=== PATIENT | male | born 1935 | race Caucasian/White ===

== ENCOUNTER 2017-07-09 15:18 | Inpatient (IN) | payer OTHER ==
[~2017-07-09] VITALS: Ht 182.9 cm; Wt 100.6 kg
[~2017-07-09 15:18] MED LIST: AMIODARONE HCL200 MG PO; AMOXICILLIN500 M1 PO; BISOPROLOL-HCT1 EACH PO; CARDIZEM CD,CA240 MG PO; CARDIZEM60 MG PO; CENTRUM SILVER1 EAC3 PO; Cardizem PO; FERROCITE324 MG PO; LISINOPRIL10 MG PO; LOSARTAN POTASS50 MG PO; PRADAXA150 MG PO; PRINIVIL10 MG PO; PRINIVIL20 MG PO; Pradaxa PO; Pravachol PO; Zestril,Prinivil PO
[2017-07-09 18:30] VITALS: BP 118/59
[2017-07-09 19:14] VITALS: BP 130/78
[2017-07-09 23:30] VITALS: BP 133/74
[2017-07-10 03:40] VITALS: BP 120/73
[2017-07-10 08:05] VITALS: BP 120/58
[2017-07-10 16:22] VITALS: BP 123/68
[2017-07-10 23:18] VITALS: BP 124/86
[2017-07-11 08:23] VITALS: BP 139/89
[2017-07-11 15:30] VITALS: BP 132/89
[2017-07-11 23:25] VITALS: BP 158/93
[2017-07-12 03:46] VITALS: BP 152/83
[2017-07-12 05:27] LABS: HEMATOCRIT 24.3 % (38.0-50.0)
[2017-07-12 05:40] LABS: HEMOGLOBIN 7.6 G/DL (12.5-16.6)
[2017-07-12 06:07] LABS: CHLORIDE 100 MEQ/L (99-109); CREATININE 0.9 MG/DL (0.6-1.3); GFR ESTIMATE (CALCULATED) > 59 mL/min/ (58.99-99999); GLUCOSE 173 mg/dL (70-99); POTASSIUM 4.4 MEQ/L (3.7-5.4); SODIUM 134 MEQ/L (136-147); UREA NITROGEN (BUN) 15 mg/dL (9-23)
[2017-07-12 07:41] VITALS: BP 136/78; BP 36/78
[2017-07-12 10:57] VITALS: BP 141/85
[2017-07-12 16:37] VITALS: BP 150/82
[2017-07-12 20:22] VITALS: BP 175/79
[2017-07-12 23:43] VITALS: BP 188/93
[2017-07-13 01:47] VITALS: BP 168/75
[2017-07-13 04:10] VITALS: BP 165/90
[2017-07-13 06:06] LABS: HEMATOCRIT 25.3 % (38.0-50.0); HEMOGLOBIN 7.9 G/DL (12.5-16.6); MCH 25.5 PG (29.0-34.0); MCHC 31.2 G/DL (30.0-36.0); MCV 81.6 FL (86-99); RBC DIS.WIDTH-SD 44.1 % (39-53); WHITE BLOOD COUNT 12.1 K/uL (4.1-10.2)
[2017-07-13 06:41] LABS: CHLORIDE 101 MEQ/L (99-109); GFR ESTIMATE (CALCULATED) > 59 mL/min/ (58.99-99999); GLUCOSE 126 mg/dL (70-99); POTASSIUM 4.8 MEQ/L (3.7-5.4); SODIUM 135 MEQ/L (136-147); UREA NITROGEN (BUN) 17 mg/dL (9-23)
[2017-07-13 06:53] LABS: IMM.PLATELET FRACTION 14.1 (1-7); PLAT.SUFFICIENCY DECREASED; PLATELET COUNT 138 K/uL (156-360)
[2017-07-13 07:31] VITALS: BP 136/92
[2017-07-13 11:38] VITALS: BP 113/62
[2017-07-13 16:04] VITALS: BP 135/84
[2017-07-13 20:20] VITALS: BP 156/86
[2017-07-14] VITALS (7 sets, daily range): BP systolic 116–140; BP diastolic 69–91
[2017-07-14 07:32] LABS: HEMATOCRIT 25.6 % (38.0-50.0); HEMOGLOBIN 7.9 G/DL (12.5-16.6); MCV 81.3 FL (86-99)
[2017-07-14] MEDS ORDERED: [UNRECOGNIZED DRUG - CODE] IM (13:46)
[2017-07-14 16:46] LABS: CHLORIDE 103 MEQ/L (99-109); GFR ESTIMATE (CALCULATED) > 59 mL/min/ (58.99-99999); GLUCOSE 139 mg/dL (70-99); POTASSIUM 4.3 MEQ/L (3.7-5.4); SODIUM 136 MEQ/L (136-147); UREA NITROGEN (BUN) 16 mg/dL (9-23)
[2017-07-15 08:09] VITALS: BP 155/98
[2017-07-15 12:24] LABS: HEMATOCRIT 24.9 % (38.0-50.0); HEMOGLOBIN 7.6 G/DL (12.5-16.6); MCH 24.8 PG (29.0-34.0); MCHC 30.5 G/DL (30.0-36.0); MCV 81.1 FL (86-99); RBC DIS.WIDTH-CV 15.1 % (11.8-14.6); RBC DIS.WIDTH-SD 44.5 % (39-53); RED BLOOD COUNT 3.07 M/uL (4.00-5.50); WHITE BLOOD COUNT 12.1 K/uL (4.1-10.2)
[2017-07-15 12:41] VITALS: BP 150/81
[2017-07-15 12:47] LABS: CHLORIDE 102 MEQ/L (99-109); GFR ESTIMATE (CALCULATED) > 59 mL/min/ (58.99-99999); GLUCOSE 165 mg/dL (70-99); POTASSIUM 4.1 MEQ/L (3.7-5.4); SODIUM 135 MEQ/L (136-147); UREA NITROGEN (BUN) 13 mg/dL (9-23)
[2017-07-15 12:51] LABS: ANISOCYTOSIS 1+; BASOPHIL (%) 0.4 % (0-1); BASOPHIL COUNT 0.1 K/uL (0-0.1); EOSINOPHIL (%) 2.3 % (0-5); EOSINOPHIL COUNT 0.3 K/uL (0-0.3); HYPOCHROMASIA 1+; IMMATURE GRANULOCYTE (%) 0.5 % (0.0-0.7); LYMPHOCYTE (%) 8.5 % (15-42); MACROCYTES 1+; MICROCYTOSIS 1+; MONOCYTE (%) 6.1 % (3-12); MONOCYTE COUNT 0.7 K/uL (0-0.8); NEUTROPHIL (%) 82.2 % (45-76); NEUTROPHIL COUNT 9.9 K/uL (1.8-6.4); PLAT.SUFFICIENCY ADEQUATE; POIKILOCYTOSIS 1+; POLYCHROMASIA 3+
[2017-07-15 14:55] LABS: APPEARANCE CLEAR ((CLEAR)); BILIRUBIN NEGATIVE; BLOOD NEGATIVE; COLOR STRAW ((YELLOW)); GLUCOSE (STRIP) NEGATIVE; KETONES NEGATIVE; LEUKOCYTES NEGATIVE; NITRITE NEGATIVE; PROTEIN (STRIP) NEGATIVE; SPECIFIC GRAVITY 1.009 (1.000-1.030); UCUL ADDED? NO; UROBILINOGEN 0.2 MG/DL (0.2-1.0)
[2017-07-15 16:58] VITALS: BP 160/80
[2017-07-15 20:54] VITALS: BP 137/96
[2017-07-16 08:03] VITALS: BP 160/108
[2017-07-16 16:39] VITALS: BP 158/96
[2017-07-16 23:49] VITALS: BP 125/75
[2017-07-17] VITALS (7 sets, daily range): BP systolic 121–154; BP diastolic 68–82
[2017-07-17 06:26] LABS: HEMATOCRIT 25.2 % (38.0-50.0); HEMOGLOBIN 7.5 G/DL (12.5-16.6); MCH 24.3 PG (29.0-34.0); MCHC 29.8 G/DL (30.0-36.0); MCV 81.6 FL (86-99); PLATELET COUNT 99 K/uL (156-360); RBC DIS.WIDTH-CV 15.5 % (11.8-14.6); RBC DIS.WIDTH-SD 45.4 % (39-53); RED BLOOD COUNT 3.09 M/uL (4.00-5.50); WHITE BLOOD COUNT 10.1 K/uL (4.1-10.2)
[2017-07-17 11:46] LABS: FASTING STATUS NONFASTING
[2017-07-17 12:37] LABS: HDL CHOLESTEROL 31 MG/DL (Desirable>=40); LDL CHOLESTEROL 45 mg/dL (Desirable<100); NON-HDL CHOLESTEROL 59 mg/dL (Desirable<160); TOTAL CHOLESTEROL 90 mg/dL (Desirable<200); TRIGLYCERIDES 69 MG/DL (Normal: <150)
[2017-07-17 14:05] LABS: HEMOGLOBIN A1c (GLYCOHEMOGLOB) 6.2 % (Below 5.7)
[2017-07-17 17:25] LABS: HEMATOCRIT 28.1 % (38.0-50.0); HEMOGLOBIN 8.6 G/DL (12.5-16.6); MCV 82.2 FL (86-99)
[2017-07-18 07:31] VITALS: BP 162/84
[2017-07-18] MEDS ORDERED: PANTOPRAZOLE SO40 MG PO (14:41)
[2017-07-18] MEDS ORDERED: PRADAXA150 MG PO (14:41)
[2017-07-18] MEDS ORDERED: LOPRESSOR100 M1 PO (14:41)
[2017-07-18] MEDS ORDERED: DILTIAZEM 24HR360 M1 PO (14:41)
[2017-07-18] MEDS ORDERED: FERROUS SULFAT325 MG PO (14:41)
[2017-07-18] MEDS ORDERED: LISINOPRIL10 MG PO (14:41)
[2017-07-18] MEDS ORDERED: ACETAMINOPHN-T1 EACH PO (14:41)
[2017-07-18] MEDS ORDERED: QUETIAPINE FUMA25 MG PO (14:49)
[2017-07-18 16:05] VITALS: BP 134/72
== END 2017-07-18 17:15 | DRG 463 ==
LOC: 3EAST 15:18 → ENRESERV 15:19 → 3EAST 18:11 → ENRESERV 07-15 04:48 → 5SOUTH 07-15 06:38
PROVIDERS: Hospitalist; Internal Medicine; Orthopaedic Surgery; Physician Assistant
DX: T84.54XA Infection and inflammatory reaction due to internal left knee prosthesis, initial encounter (principal); R65.20 Severe sepsis without septic shock; A40.8 Other streptococcal sepsis; G93.41 Metabolic encephalopathy; I63.441 Cerebral infarction due to embolism of right cerebellar artery; I48.1 Persistent atrial fibrillation; I47.1 Supraventricular tachycardia; Z96.652 Presence of left artificial knee joint; Y83.1 Surgical operation with implant of artificial internal device as the cause of abnormal reaction of the patient, or of later complication, without mention of misadventure at the time of the procedure; I48.0 Paroxysmal atrial fibrillation; D50.9 Iron deficiency anemia, unspecified; E03.9 Hypothyroidism, unspecified; E78.5 Hyperlipidemia, unspecified; I10 Essential (primary) hypertension; I27.29 Other secondary pulmonary hypertension; I34.0 Nonrheumatic mitral (valve) insufficiency; I48.2 Chronic atrial fibrillation; I49.5 Sick sinus syndrome; K21.9 Gastro-esophageal reflux disease without esophagitis; E66.3 Overweight; Z87.891 Personal history of nicotine dependence; Z87.442 Personal history of urinary calculi; Z87.11 Personal history of peptic ulcer disease; Z86.73 Personal history of transient ischemic attack (TIA), and cerebral infarction without residual deficits; Z85.820 Personal history of malignant melanoma of skin; Z79.01 Long term (current) use of anticoagulants; Z68.30 Body mass index [BMI] 30.0-30.9, adult
CPT/HCPCS: 36415; 70450; 70551; 71045; 80048; 80053; 80061; 80069; 81003; 83036; 85014; 85018; 85025; 85025 91; 85027; 85651; 86140; 86850; 86900; 86901; 86920; 87040; 87070; 87075; 87076; 87186; 87205; 87801; 89051; 93005; 93306; 93880; 94799; C1713; J0131; J0330; J0690; J1170; J1885; J2405; J2540; J3010; J3370; J7030; P9016

== ENCOUNTER 2017-08-20 10:14 | Emergency (ER) | payer OTHER ==
[~2017-08-20] VITALS: Ht 182.9 cm; Wt 89.6 kg
[~2017-08-20 10:14] MED LIST changes: +ACETAMINOPHN-T1 EACH PO; +DILTIAZEM 24HR360 M1 PO; +FERROUS SULFAT325 MG PO; +LOPRESSOR100 M1 PO; +PANTOPRAZOLE SO40 MG PO; +QUETIAPINE FUMA25 MG PO; +[UNRECOGNIZED DRUG - CODE] IM
[2017-08-20 12:45] VITALS: BP 130/76
== END 2017-08-20 12:44 | disposition home or self-care (01) ==
LOC: EME 10:14
DX: I48.91 Unspecified atrial fibrillation (principal); I10 Essential (primary) hypertension; Z87.442 Personal history of urinary calculi; Z85.820 Personal history of malignant melanoma of skin; Z79.01 Long term (current) use of anticoagulants; Z87.891 Personal history of nicotine dependence; Z88.8 Allergy status to other drugs, medicaments and biological substances
CPT/HCPCS: 93005

== ENCOUNTER 2017-09-09 20:44 | Inpatient (IN) | payer OTHER ==
[~2017-09-09] VITALS: Ht 180.3 cm; Wt 89.0 kg
[2017-09-10 19:00] VITALS: BP 146/79
[2017-09-10 19:55] VITALS: BP 146/79
[2017-09-10 20:59] LABS: BASOPHIL (%) 0.8 % (0-1); BASOPHIL COUNT 0.1 K/uL (0-0.1); EOSINOPHIL (%) 3.1 % (0-5); EOSINOPHIL COUNT 0.2 K/uL (0-0.3); HEMATOCRIT 31.9 % (38.0-50.0); HEMOGLOBIN 9.4 G/DL (12.5-16.6); IMMATURE GRANULOCYTE (%) 0.5 % (0.0-0.7); LYMPHOCYTE COUNT 1.5 K/uL (1.0-2.8); MCH 25.1 PG (29.0-34.0); MCHC 29.5 G/DL (30.0-36.0); MCV 85.3 FL (86-99); MONOCYTE (%) 11.1 % (3-12); MONOCYTE COUNT 0.7 K/uL (0-0.8); NEUTROPHIL (%) 61.5 % (45-76); NEUTROPHIL COUNT 3.9 K/uL (1.8-6.4); PLATELET COUNT 335 K/uL (156-360); RBC DIS.WIDTH-CV 17.6 % (11.8-14.6); RBC DIS.WIDTH-SD 54.5 % (39-53); RED BLOOD COUNT 3.74 M/uL (4.00-5.50); WHITE BLOOD COUNT 6.4 K/uL (4.1-10.2)
[2017-09-10 21:03] LABS: INTER. NORMALIZED RATIO 1.2
[2017-09-10 21:06] LABS: PTT 44.3 SEC (25-37)
[2017-09-10] MEDS ORDERED: PRADAXA150 MG PO (22:15)
[2017-09-10] MEDS ORDERED: ACETAMINOPHN-T1 EACH PO (22:19)
[2017-09-10] MEDS ORDERED: LOPRESSOR100 M1 PO (22:21)
[2017-09-10] MEDS ORDERED: LISINOPRIL10 MG PO (22:23)
[2017-09-10] MEDS ORDERED: PANTOPRAZOLE SO40 MG PO (22:24)
[2017-09-10] MEDS ORDERED: DILTIAZEM 24HR360 M1 PO (22:25)
[2017-09-10] MEDS ORDERED: MUPIROCIN22 GM NS (22:34)
[2017-09-10 23:54] VITALS: BP 160/70
[2017-09-11] VITALS (7 sets, daily range): BP systolic 128–175; BP diastolic 64–101
[2017-09-11 01:14] LABS: CHLORIDE 109 mEq/L (99-109); POTASSIUM 3.7 mEq/L (3.7-5.4); SODIUM 142 mEq/L (136-147)
[2017-09-11 01:16] LABS: GLUCOSE 93 mg/dL (70-99)
[2017-09-11 01:20] LABS: CREATININE 0.9 mg/dL (0.6-1.3); GFR ESTIMATE (CALCULATED) > 59 mL/min/ (58.99-99999)
[2017-09-11 01:21] LABS: UREA NITROGEN (BUN) 22 mg/dL (9-23)
[2017-09-11 05:41] LABS: INTER. NORMALIZED RATIO 1.2
[2017-09-11 05:44] LABS: PTT 40.9 SEC (25-37)
[2017-09-11 12:43] LABS: BASOPHIL (%) 0.8 % (0-1); BASOPHIL COUNT 0.1 K/uL (0-0.1); EOSINOPHIL (%) 3.4 % (0-5); EOSINOPHIL COUNT 0.2 K/uL (0-0.3); HEMATOCRIT 33.1 % (38.0-50.0); HEMOGLOBIN 9.8 G/DL (12.5-16.6); IMMATURE GRANULOCYTE (%) 0.2 % (0.0-0.7); LYMPHOCYTE (%) 23.3 % (15-42); LYMPHOCYTE COUNT 1.5 K/uL (1.0-2.8); MCH 25.1 PG (29.0-34.0); MCHC 29.6 G/DL (30.0-36.0); MCV 84.9 FL (86-99); MONOCYTE (%) 9.4 % (3-12); MONOCYTE COUNT 0.6 K/uL (0-0.8); NEUTROPHIL (%) 62.9 % (45-76); NEUTROPHIL COUNT 3.9 K/uL (1.8-6.4); PLATELET COUNT 307 K/uL (156-360); RBC DIS.WIDTH-CV 17.5 % (11.8-14.6); RBC DIS.WIDTH-SD 54.7 % (39-53); WHITE BLOOD COUNT 6.3 K/uL (4.1-10.2)
[2017-09-11 13:08] LABS: CHLORIDE 105 MEQ/L (99-109); CREATININE 0.8 MG/DL (0.6-1.3); GFR ESTIMATE (CALCULATED) > 59 mL/min/ (58.99-99999); GLUCOSE 138 mg/dL (70-99); SODIUM 138 MEQ/L (136-147); UREA NITROGEN (BUN) 19 mg/dL (9-23)
[2017-09-11 13:27] LABS: C-REACTIVE PROTEIN 7.2 MG/L (0-10)
[2017-09-11 14:13] LABS: ERTH.SED.RATE 43 MM/HR (0-20)
[2017-09-12 03:56] VITALS: BP 142/90
[2017-09-12 08:27] VITALS: BP 132/71
[2017-09-12 09:22] LABS: BASOPHIL (%) 1.1 % (0-1); BASOPHIL COUNT 0.1 K/uL (0-0.1); EOSINOPHIL COUNT 0.4 K/uL (0-0.3); HEMATOCRIT 33.2 % (38.0-50.0); HEMOGLOBIN 9.7 G/DL (12.5-16.6); IMMATURE GRANULOCYTE (%) 0.2 % (0.0-0.7); LYMPHOCYTE (%) 27.9 % (15-42); LYMPHOCYTE COUNT 1.5 K/uL (1.0-2.8); MCH 24.7 PG (29.0-34.0); MCHC 29.2 G/DL (30.0-36.0); MCV 84.5 FL (86-99); MONOCYTE (%) 9.5 % (3-12); MONOCYTE COUNT 0.5 K/uL (0-0.8); NEUTROPHIL (%) 54.3 % (45-76); PLATELET COUNT 322 K/uL (156-360); RBC DIS.WIDTH-CV 17.4 % (11.8-14.6); RBC DIS.WIDTH-SD 54.4 % (39-53); RED BLOOD COUNT 3.93 M/uL (4.00-5.50); WHITE BLOOD COUNT 5.5 K/uL (4.1-10.2)
[2017-09-12 09:53] LABS: ALBUMIN 3.5 G/DL (3.2-4.8); ALKALINE PHOSPHATASE 118 IU/L (3-129); ALT (GPT) 9 IU/L (3-49); AST (GOT) 10 IU/L (2-34); CHLORIDE 108 MEQ/L (99-109); CREATININE 0.9 MG/DL (0.6-1.3); GFR ESTIMATE (CALCULATED) > 59 mL/min/ (58.99-99999); GLUCOSE 115 mg/dL (70-99); POTASSIUM 4.2 MEQ/L (3.7-5.4); SODIUM 141 MEQ/L (136-147); TOTAL BILIRUBIN 0.3 MG/DL (0.0-1.0); TOTAL PROTEIN 6.2 G/DL (6.4-8.3); UREA NITROGEN (BUN) 16 mg/dL (9-23)
[2017-09-12 16:26] VITALS: BP 115/64
[2017-09-12 20:37] VITALS: BP 155/82
[2017-09-13] VITALS (7 sets, daily range): BP systolic 110–145; BP diastolic 50–75
[2017-09-13 07:22] LABS: MCV 85.9 FL (86-99)
[2017-09-13 09:00] LABS: CHLORIDE 106 MEQ/L (99-109); CREATININE 0.9 MG/DL (0.6-1.3); GFR ESTIMATE (CALCULATED) > 59 mL/min/ (58.99-99999); GLUCOSE 149 mg/dL (70-99); POTASSIUM 4.4 MEQ/L (3.7-5.4); SODIUM 140 MEQ/L (136-147); UREA NITROGEN (BUN) 16 mg/dL (9-23)
[2017-09-14 04:07] VITALS: BP 162/95
[2017-09-14 05:52] LABS: HEMATOCRIT 28.5 % (38.0-50.0); HEMOGLOBIN 8.3 G/DL (12.5-16.6); MCV 84.8 FL (86-99)
[2017-09-14 07:50] VITALS: BP 120/78
[2017-09-14 12:32] VITALS: BP 140/87
[2017-09-14 15:30] VITALS: BP 130/63
[2017-09-14 20:13] VITALS: BP 144/88
[2017-09-14 23:56] VITALS: BP 143/73
[2017-09-15 04:15] VITALS: BP 164/74
[2017-09-15 05:48] LABS: HEMATOCRIT 29.1 % (38.0-50.0); HEMOGLOBIN 8.7 G/DL (12.5-16.6); MCH 25.7 PG (29.0-34.0); MCHC 29.9 G/DL (30.0-36.0); MCV 85.8 FL (86-99); PLATELET COUNT 247 K/uL (156-360); RBC DIS.WIDTH-CV 17.8 % (11.8-14.6); RBC DIS.WIDTH-SD 55.2 % (39-53); RED BLOOD COUNT 3.39 M/uL (4.00-5.50); WHITE BLOOD COUNT 9.8 K/uL (4.1-10.2)
[2017-09-15 08:00] VITALS: BP 136/91
[2017-09-15 11:22] VITALS: BP 143/92
== END 2017-09-15 13:49 | disposition home health service (06) | DRG 468 ==
LOC: ENRESERV 20:44 → 3EAST 09-10 19:14 → 2SOUTH 09-12 06:35 → 3EAST 09-12 13:29 → 2SOUTH 09-12 17:39 → 3EAST 09-15 13:49
PROVIDERS: Hospitalist; Internal Medicine; Orthopaedic Surgery; Physician Assistant
DX: Z47.33 Aftercare following explantation of knee joint prosthesis (principal); I48.2 Chronic atrial fibrillation; I12.9 Hypertensive chronic kidney disease with stage 1 through stage 4 chronic kidney disease, or unspecified chronic kidney disease; N18.9 Chronic kidney disease, unspecified; K21.9 Gastro-esophageal reflux disease without esophagitis; I27.20 Pulmonary hypertension, unspecified; E78.5 Hyperlipidemia, unspecified; D64.9 Anemia, unspecified; E03.9 Hypothyroidism, unspecified; I69.398 Other sequelae of cerebral infarction; R41.0 Disorientation, unspecified; Z89.522 Acquired absence of left knee; Z79.01 Long term (current) use of anticoagulants; Z85.820 Personal history of malignant melanoma of skin; Z87.11 Personal history of peptic ulcer disease; Z87.442 Personal history of urinary calculi; Z87.891 Personal history of nicotine dependence
CPT/HCPCS: 36415; 71045; 80048; 80048 91; 80053; 82948; 85014; 85018; 85025; 85027; 85610; 85652; 85730; 86140; 86850; 86900; 86901; 87070; 87075; 87205; 87641; 88305; 88331; 94010; 99202; C1713; C1776; J0131; J0330; J0690; J0696; J1170; J1885; J2405; J2795; J7120